=== PATIENT | female | born 1965 | race Caucasian/White ===

== ENCOUNTER 2016-10-31 13:22 | Emergency (ER) | payer OTHER ==
[~2016-10-31] VITALS: Ht 154.9 cm; Wt 104.5 kg
[~2016-10-31 13:22] MED LIST: CYCL5TAB PO; DIPH50C PO; DOCU-41 PO; FLUT12AE10 IH; FLUT50DI IH; FUR20 PO; KLO2T PO; LACT1CAP65 PO; MULT-666 PO; ONDA4VIA27 IVPUSH; OXYC-530 PO; POLY17PO2 PO; POLY17PO6 PO; PRAZ1CAP2 PO; TEMA30CA4 PO; TIZA2TAB3 PO
[2016-10-31 13:29] VITALS: BP 118/68; PULSE 82; RESP 16; O2SAT 99
--- NOTE | 2016-10-31 14:17 | ED.REPORT ---
HPI-General Illness Date of Service Oct 31, 2016 ED Provider: Edmund Singh MD Junior is a 51-year-old female presenting to the emergency department with chief complaint of allergic reaction. Patient reports being stung on her left thumb several hours ago by a bee. She began to feel flushed, short of breath, dizzy and had a sensation of her throat closing. Associated with cough, wheeze, shortness of breath. After roughly 1 hour she presented to urgent care where she was given 0.3 mg of epinephrine IM as well as 125 mg of Solu-Medrol and forwarded to the emergency department. Here in the emergency department she reports her symptoms have significantly improved, though she states she feels quite tired. She does report a history of reactions to bee stings and a previously prescribed EpiPen, which she states is . Denies chest pain. Nursing Notes Stated Complaint: ALLERGIC REACTION Chief Complaint: Allergic Reaction Nursing Notes Reviewed: Yes Allergies: Coded Allergies: ceftaroline fosamil (Verified Allergy, Severe, 10/19/14) cimetidine (Verified Allergy, Unknown, 11/12/14) latex (Verified Allergy, Unknown, hives, 11/12/14) sumatriptan (Verified Allergy, Unknown, 11/12/14) Scheduled Clonazepam (Clonazepam) 2 Mg Tablet 2 TAB PO DAILY Diphenhydramine Hcl (Benadryl) 50 Mg Capsule 25 MG PO Q6H Fluticasone Propionate (Flovent HFA 220 mcg) 12 Gm Aer.w.adap 2 PUFFS IH BID Fluticasone Propionate (Flovent Diskus) 50 Mcg Disk.w.dev 1 PUFF IH BID Furosemide (Furosemide) 20 Mg Tab 20 MG PO DAILY Lactobacillus Acidophilus (Probiotic) 1 Each Capsule 1 EACH PO DAILY Multivitamin (Once Daily) 1 Each Tablet 1 EACH PO DAILY Polyethylene Glycol 3350 (Polyethylene Glycol 3350) 17 Gm Powd.pack 17 GM PO DAILY Polyethylene Glycol 3350 (Miralax) 17 Gm Powd.pack 17 GM PO DAILY Prazosin (Prazosin) 1 Mg Capsule 2 MG PO HS Prednisone (PredniSONE) 20 Mg Tablet 40 MG PO DAILY Scheduled PRN Cyclobenzaprine (Cyclobenzaprine) 5 Mg Tablet 5 MG PO TID PRN PRN Spasm Docusate Sodium (Colace) 100 Mg Capsule 100 MG PO BID PRN PRN For Constipation Ondansetron PF (Ondansetron PF) 2 Mg/Ml Ml 4-8 MG IVPUSH Q4H PRN PRN For Nausea/ Vomiting Temazepam (Restoril) 30 Mg Capsule 30 MG PO HS PRN PRN For Insomnia Tizanidine (Tizanidine) 2 Mg Tablet 2 MG PO Q6H PRN PRN For Spasm oxyCODONE (oxyCODONE) 5 Mg Tablet 5-15 MG PO Q4H PRN PRN For Moderate Pain General Time Seen by MD: 14:16 Chief Complaint Allergic reaction Past Medical History Past Medical History Denies Smoking History Former Smoker Review of Systems Negative unless stated otherwise in history of present illness Physical Exam General: Well appearing, well developed, well nourished, no acute distress. Head: Atraumatic, normocephalic. No mastoid tenderness. Eyes: No scleral icterus or injection. No discharge. PERRL. Vision grossly intact. Ears: Pinna and tragus nontender with manipulation. External auditory canal patent, atraumatic and without discharge. Tympanic membrane gatica, shiny and translucent without fluid, bulging, retraction or perforation. Hearing grossly intact. Nose: Symmetrical, nares patent without discharge. No frontal or maxillary sinus tenderness. Mouth/pharynx: normal dentition, mucus membranes moist. Tonsils 2+ and symmetrical, uvula midline. Pharynx noninjected, no cobblestoning or discharge. Voice clear. Neck: No tenderness or lymphadenopathy. Trachea midline. Respiratory: Negative stridor. Regular rate and rhythm. Breath sounds present, clear to auscultation and equal bilaterally. No respiratory distress. No increased work of breathing, speaks in complete sentences. Cardiovascular: Regular rate and rhythm, without murmur, gallop or rub. No pedal edema. Gastrointestinal: Abdomen flat and non-tender without guarding or rebound. Bowel sounds normoactive. Skin: Warm and dry. Neurological: Grossly nonfocal. Psychological: Alert and oriented. Speech appropriate, linear and logical. Behavior appropriate. Vital Signs Vital Signs Date Time Temp Pulse Resp B/P Pulse Ox O2 Delivery O2 Flow Rate FiO2 10/31/16 15:20 80 120/90 98 10/31/16 13:29 36.6 82 16 118/68 99 Room Air Re-Eval/Medical Decision Med Decision/Clinical Course 51-year-old female presents to department with apparent allergic reaction to a bee sting. Complains of throat closing, difficult breathing, cough, wheeze, shortness of breath. Denies lip or tongue swelling. Patient was seen at the urgent care and given 0.3 mg of epinephrine and 125 mg of Solu-Medrol. Here in the emergency department she reports significant improvement in her symptoms, only that she is very tired. Physical examination reveals clear lung sounds bilaterally, examination of the oropharynx reveals no evidence of angioedema. Vital signs are normal. Patient feels well and wishes to be discharged. At this point I see no evidence of an ongoing anaphylactic reaction and further treatment is deferred. I think this is likely a reaction to the bee sting. I discussed the case with Dr. Singh, who met with and examined the patient. He agrees she is stable to be discharged to home. Prescribed epinephrine autoinjector, pulse of prednisone. Provided primary care follow-up referral. Advised regarding primary care follow-up, provided emergency return precautions. Patient verbalized understanding of, and consent to, the plan. Discharge & Departure Primary Impression: Allergic reaction to bee sting Disposition: Home Discharge Condition All VS Reviewed: Yes Condition: Stable Patient Instructions: Anaphylaxis (ED) Additional Instructions: Evaluation in the emergency department for a bee sting reaction includes interview and physical examination both her which are reassuring that her reaction is resolving and you are not in any imminent danger. We believe you are stable and safe to go home. I will write a prescription for an epinephrine autoinjector. He should carry one of these at all times in case of a repeat event. I will write a prescription for prednisone 40 mg to take once a day for the next 3 days. you can begin this tomorrow. I will provide you with a referral for a primary care provider. Please contact their office tomorrow to establish care and follow-up on the event today. Return emergency Department for any new or worsening symptoms including chest pain, shortness of breath, difficulty breathing. Referrals: Larry Matt MD EDSupervising Provider for [facility]: Edmund Singh MD Attending Statement I saw the patient with the PA. I agree with the plan and findings as per above. 51-year-old female presenting to the ED for evaluation of an allergic reaction. She has received treatment here in the ED and remained stable. Initially with some concern for airway involvement, however this has resolved. Prescribed EpiPen and discharge home with very careful return precautions, PCP follow-up. Edmund Singh MD Oct 31, 2016 14:16 Jonathan Berger PA-C Oct 31, 2016 14:41
[2016-10-31] MEDS ORDERED: PRE20 PO (14:44)
[2016-10-31 15:20] VITALS: BP 120/90; PULSE 80; O2SAT 98
== END 2016-10-31 15:21 | disposition home or self-care (01) ==
LOC: EDUNIT# 13:22 → EDBD 13:22 → SED 13:22
DX: T63.441A Toxic effect of venom of bees, accidental (unintentional), initial encounter (principal); R06.02 Shortness of breath; R09.89 Other specified symptoms and signs involving the circulatory and respiratory systems; R06.2 Wheezing; X58.XXXA Exposure to other specified factors, initial encounter; Y93.9 Activity, unspecified; Y92.9 Unspecified place or not applicable; Y99.9 Unspecified external cause status; Z87.891 Personal history of nicotine dependence; Z88.1 Allergy status to other antibiotic agents; Z88.8 Allergy status to other drugs, medicaments and biological substances; Z91.040 Latex allergy status